=== PATIENT | male | born 1965 | race Caucasian/White ===

== ENCOUNTER 2020-12-02 13:00 | Emergency (ER) | payer BC ==
[2020-12-02] MEDS ORDERED: ALPRAZolam 0.5 MG TAB ONE (13:29)
== END 2020-12-02 14:28 | disposition home or self-care (01) ==
LOC: NAV ERS 13:00
DX: F41.0 Panic disorder [episodic paroxysmal anxiety] (principal); F17.220 Nicotine dependence, chewing tobacco, uncomplicated; Z79.899 Other long term (current) drug therapy
CPT/HCPCS: 93005

== ENCOUNTER 2021-01-04 12:03 | Emergency (ER) | payer BC | END 2021-01-04 12:38 | disposition home or self-care (01) | LOC: NAV ERS 12:03 | DX: S10.96XA Insect bite of unspecified part of neck, initial encounter (principal); F17.220 Nicotine dependence, chewing tobacco, uncomplicated; W57.XXXA Bitten or stung by nonvenomous insect and other nonvenomous arthropods, initial encounter | CPT/HCPCS: 99282 ==